=== PATIENT | male | born 1995 | race African-American/Black ===

== ENCOUNTER 2020-05-17 14:14 | Emergency (ER) | payer MEDICAID ==
[~2020-05-17] VITALS: Ht 188 cm; Wt 94.0 kg
[2020-05-17 15:25] VITALS: BP 131/81
== END 2020-05-17 15:31 | disposition home or self-care (01) ==
LOC: ER 14:14
DX: H10.89 Other conjunctivitis (principal); H57.12 Ocular pain, left eye
CPT/HCPCS: 99283